=== PATIENT | female | born 1930 | race Caucasian/White ===

== ENCOUNTER → 2016-07-01 | Outpatient (CLI) | payer MEDICARE ==
[~2016-07-01] MED LIST: ACTONEL35 MG PO; ALBUTEROL0.09 MG/A2 IH; ANTIVERT12.5 MG PO; IMDUR30 MG PO; LASIX40 MG PO; PRAVACHOL40 MG PO; PREDNICOT10 MG PO; XANAX0.25 MG PO; ZITHROMAX Z PA250 MG PO
[2016-07-01 14:54] LABS: BASO # 0.1 10*3/uL (0.0-0.1); BASO % 0.8 % (0.0-1.0); EOS # 0.1 10*3/uL (0.0-0.4); EOS % 1.6 % (1.0-4.0); HEMOGLOBIN 13.2 g/dl (12.0-16.0); LYMPH # 1.5 10*3/uL (1.3-4.4); LYMPH % 23.6 % (27.0-41.0); MEAN CELL VOLUME 94.6 fl (81.0-99.0); MEAN CORPUSCULAR HGB 31.2 pg (27.0-31.0); MEAN PLATELET VOLUME 9.8 fl (9.6-12.3); MONO # 0.6 10*3/uL (0.1-1.0); NEUT % 63.7 % (47.0-73.0); PLATELET COUNT AUTOMATED 210 10*3/uL (130-400); RED BLOOD COUNT 4.23 10*6/uL (4.10-5.10); RED CELL DISTRI WIDTH 14.4 % (0-14.5); WHITE BLOOD COUNT 6.3 10*3/uL (4.8-10.8)
[2016-07-01 15:12] LABS: ALBUMIN 3.8 gm/dl (3.1-4.5); ALKALINE PHOSPHATASE 66 U/L (45-117); BILIRUBIN, TOTAL 0.4 mg/dl (0.2-1.0); BUN 18 mg/dl (7-24); CARBON DIOXIDE 29 mmol/L (21-32); CHLORIDE 105 mmol/L (98-107); EST GLOM FILT AFRICAN AMERICAN > 60 ml/min; GLUCOSE 87 mg/dL (65-99); POTASSIUM 4.2 mmol/L (3.5-5.1); SGOT/AST 26 IU/L (3-35); SGPT/ALT 27 U/L (12-78); SODIUM 143 mmol/L (136-145); TOTAL PROTEIN 7.7 gm/dL (6.4-8.2)
== END | disposition home or self-care (01) ==
LOC: LAB 14:25
PROVIDERS: Internal Medicine
DX: G30.0 Alzheimer's disease with early onset (principal)

== ENCOUNTER 2016-09-02 13:21 | Inpatient (IN) | payer MEDICARE ==
[2016-09-02] VITALS (7 sets, daily range): BP systolic 104–175; BP diastolic 38–65
[~2016-09-02] VITALS: Ht 152.4 cm; Wt 67.3 kg
[2016-09-02] MEDS ORDERED: AMLODIPINE BESY1 TAB PO (13:30)
[2016-09-02] MEDS ORDERED: LISINOPRIL AND1 TAB PO (13:31)
[2016-09-02] MEDS ORDERED: ARICEPT5 M1 PO (13:31)
[2016-09-02] MEDS ORDERED: ALENDRONATE SOD70 M1 PO (13:31)
[2016-09-02 14:13] LABS: BASO # 0.1 10*3/uL (0.0-0.1); EOS # 0.2 10*3/uL (0.0-0.4); EOS % 2.8 % (1.0-4.0); HEMOGLOBIN 12.8 g/dl (12.0-16.0); IG # 0.1 10*3/uL (0.0-0.1); LYMPH # 1.7 10*3/uL (1.3-4.4); LYMPH % 25.3 % (27.0-41.0); MEAN CELL VOLUME 93.6 fl (81.0-99.0); MEAN CORPUSCULAR HGB 31.5 pg (27.0-31.0); MEAN CORPUSCULAR HGB CONC 33.7 g/dl (33.0-37.0); MEAN PLATELET VOLUME 9.9 fl (9.6-12.3); MONO # 0.6 10*3/uL (0.1-1.0); MONO % 8.9 % (3.0-9.0); NEUT # 4.1 10*3/uL (2.3-7.9); NEUT % 61.3 % (47.0-73.0); PLATELET COUNT AUTOMATED 207 10*3/uL (130-400); RED BLOOD COUNT 4.06 10*6/uL (4.10-5.10); RED CELL DISTRI WIDTH 13.7 % (0-14.5); WHITE BLOOD COUNT 6.8 10*3/uL (4.8-10.8)
[2016-09-02 14:20] LABS: PROTHROMBIN TIME 10.6 SECONDS (9.0-12.4)
[2016-09-02 14:28] LABS: ALBUMIN 3.6 gm/dl (3.1-4.5); ALKALINE PHOSPHATASE 56 U/L (45-117); BILIRUBIN, TOTAL 0.4 mg/dl (0.2-1.0); BUN 21 mg/dl (7-24); CARBON DIOXIDE 27 mmol/L (21-32); CHLORIDE 105 mmol/L (98-107); CPK 81 U/L (26-192); EST GLOM FILT AFRICAN AMERICAN > 60 ml/min; GLUCOSE 126 mg/dL (65-99); LDH 218 U/L (84-246); MAGNESIUM 2.3 mg/dL (1.5-2.1); SGOT/AST 21 IU/L (3-35); SGPT/ALT 20 U/L (12-78); SODIUM 140 mmol/L (136-145); TOTAL PROTEIN 7.2 gm/dL (6.4-8.2)
[2016-09-02 14:31] LABS: TROPONIN I < 0.015 ng/ml (<0.045)
[2016-09-02 18:09] LABS: CKMB 2.3 ng/ml (0.5-3.6); CPK 74 U/L (26-192)
[2016-09-02 18:10] LABS: TROPONIN I < 0.015 ng/ml (<0.045)
[2016-09-03] VITALS: BP 134/54
[2016-09-03 00:28] LABS: CKMB 2.1 ng/ml (0.5-3.6); CPK 65 U/L (26-192)
[2016-09-03 00:31] LABS: TROPONIN I < 0.015 ng/ml (<0.045)
[2016-09-03 06:21] LABS: BASO # 0.1 10*3/uL (0.0-0.1); BASO % 0.9 % (0.0-1.0); EOS # 0.4 10*3/uL (0.0-0.4); EOS % 5.5 % (1.0-4.0); HEMATOCRIT 39.3 % (37.0-47.0); HEMOGLOBIN 13.2 g/dl (12.0-16.0); LYMPH # 1.7 10*3/uL (1.3-4.4); LYMPH % 26.1 % (27.0-41.0); MEAN CORPUSCULAR HGB 31.6 pg (27.0-31.0); MEAN CORPUSCULAR HGB CONC 33.6 g/dl (33.0-37.0); MEAN PLATELET VOLUME 9.9 fl (9.6-12.3); MONO # 0.6 10*3/uL (0.1-1.0); MONO % 8.6 % (3.0-9.0); NEUT # 3.7 10*3/uL (2.3-7.9); NEUT % 58.6 % (47.0-73.0); PLATELET COUNT AUTOMATED 200 10*3/uL (130-400); RED BLOOD COUNT 4.18 10*6/uL (4.10-5.10); RED CELL DISTRI WIDTH 13.8 % (0-14.5); WHITE BLOOD COUNT 6.4 10*3/uL (4.8-10.8)
[2016-09-03 06:32] LABS: CKMB 1.6 ng/ml (0.5-3.6); CPK 59 U/L (26-192)
[2016-09-03 06:34] LABS: HEMOGLOBIN A1c 5.9 % (4.8-5.6)
[2016-09-03 06:36] LABS: TROPONIN I < 0.015 ng/ml (<0.045)
[2016-09-03 06:57] LABS: ALBUMIN 3.5 gm/dl (3.1-4.5); BUN 16 mg/dl (7-24); CARBON DIOXIDE 26 mmol/L (21-32); CHLORIDE 110 mmol/L (98-107); CHOLESTEROL 164 mg/dL (<200); GLUCOSE 86 mg/dL (65-99); MAGNESIUM 2.4 mg/dL (1.5-2.1); PHOSPHOROUS 3.1 mg/dL (2.5-4.9); POTASSIUM 4.1 mmol/L (3.5-5.1); SGOT/AST 25 IU/L (3-35); SODIUM 144 mmol/L (136-145); TRIGLYCERIDES 78 mg/dl (<150); VLDL CHOLESTEROL 16 mg/dL (6-40)
[2016-09-03 07:01] LABS: PROTHROMBIN TIME 10.5 SECONDS (9.0-12.4)
[2016-09-03 07:02] LABS: VITAMIN D, 25-HYDROXY 41.7 ng/mL (30-100)
[2016-09-03 07:03] LABS: FOLIC ACID > 24.00 ng/mL (>5.38)
[2016-09-03 07:04] LABS: ALKALINE PHOSPHATASE 53 U/L (45-117); BILIRUBIN, TOTAL 0.5 mg/dl (0.2-1.0); EST GLOM FILT AFRICAN AMERICAN > 60 ml/min; FREE T4 0.96 ng/dl (0.76-1.46); HDL CHOLESTEROL 45 mg/dl (40-60); LDL CHOLESTEROL 103 mg/dL (9-159); SGPT/ALT 17 U/L (12-78)
[2016-09-03 08:00] VITALS: BP 146/51
[2016-09-03 12:00] VITALS: BP 121/75
[2016-09-03] MEDS ORDERED: AMLODIPINE BESY1 TAB PO (14:42)
[2016-09-03 16:00] VITALS: BP 137/79
[2016-09-03 20:00] VITALS: BP 149/75
[2016-09-04] VITALS: BP 141/65
[2016-09-04 08:00] VITALS: BP 150/57
[2016-09-04] MEDS ORDERED: ADALAT10 MG PO (11:24)
[2016-09-04 12:00] VITALS: BP 157/53
== END 2016-09-04 13:59 | disposition home or self-care (01) | DRG 310 ==
LOC: ED 13:21 → 4E 16:17
PROVIDERS: Internal Medicine; Physician Assistant
DX: R00.1 Bradycardia, unspecified (principal); F03.90 Unspecified dementia, unspecified severity, without behavioral disturbance, psychotic disturbance, mood disturbance, and anxiety; I10 Essential (primary) hypertension; E89.0 Postprocedural hypothyroidism; R91.1 Solitary pulmonary nodule; I73.00 Raynaud's syndrome without gangrene; M81.0 Age-related osteoporosis without current pathological fracture; E02 Subclinical iodine-deficiency hypothyroidism; Z90.710 Acquired absence of both cervix and uterus; Z87.891 Personal history of nicotine dependence; T44.1X5A Adverse effect of other parasympathomimetics [cholinergics], initial encounter

== ENCOUNTER → 2016-09-21 | Outpatient (CLI) | payer MEDICARE ==
[~2016-09-21] MED LIST changes: +ADALAT10 MG PO; +ALENDRONATE SOD70 M1 PO; +AMLODIPINE BESY1 TAB PO; +ARICEPT5 M1 PO; +LISINOPRIL AND1 TAB PO
== END ==
LOC: CT 09-15 15:00
DX: J44.9 Chronic obstructive pulmonary disease, unspecified (principal); R91.1 Solitary pulmonary nodule; I25.10 Atherosclerotic heart disease of native coronary artery without angina pectoris; Z85.118 Personal history of other malignant neoplasm of bronchus and lung

== ENCOUNTER → 2016-09-22 | Outpatient (CLI) | payer MEDICARE | END | disposition home or self-care (01) | LOC: MRI 01:54 | DX: F03.90 Unspecified dementia, unspecified severity, without behavioral disturbance, psychotic disturbance, mood disturbance, and anxiety (principal); G25.2 Other specified forms of tremor; J32.0 Chronic maxillary sinusitis ==

== ENCOUNTER 2016-11-18 16:04 | Inpatient (IN) | payer MEDICARE ==
[~2016-11-18] VITALS: Ht 157.5 cm; Wt 635.5 kg
[2016-11-18 16:15] VITALS: BP 118/60
[2016-11-18 16:16] VITALS: BP 116/47
[2016-11-18 16:20] LABS: BASO % 0.5 % (0.0-1.0); EOS # 0.1 10*3/uL (0.0-0.4); EOS % 0.7 % (1.0-4.0); HEMOGLOBIN 13.3 g/dl (12.0-16.0); LYMPH % 24.5 % (27.0-41.0); MEAN CELL VOLUME 88.5 fl (81.0-99.0); MEAN CORPUSCULAR HGB 31.8 pg (27.0-31.0); MEAN CORPUSCULAR HGB CONC 35.9 g/dl (33.0-37.0); MEAN PLATELET VOLUME 8.8 fl (9.6-12.3); MONO # 0.8 10*3/uL (0.1-1.0); MONO % 10.1 % (3.0-9.0); NEUT # 5.3 10*3/uL (2.3-7.9); NEUT % 63.8 % (47.0-73.0); PLATELET COUNT AUTOMATED 294 10*3/uL (130-400); RED BLOOD COUNT 4.18 10*6/uL (4.10-5.10); RED CELL DISTRI WIDTH 13.3 % (0-14.5); WHITE BLOOD COUNT 8.3 10*3/uL (4.8-10.8)
[2016-11-18 16:29] LABS: PROTHROMBIN TIME 10.4 SECONDS (9.0-12.4)
[2016-11-18 16:36] LABS: ALBUMIN 4.2 gm/dl (3.1-4.5); BILIRUBIN, TOTAL 0.4 mg/dl (0.2-1.0); BUN 22 mg/dl (7-24); CARBON DIOXIDE 24 mmol/L (21-32); CHLORIDE 90 mmol/L (98-107); EST GLOM FILT AFRICAN AMERICAN 51 ml/min; GLUCOSE 145 mg/dL (65-99); MAGNESIUM 2.1 mg/dL (1.5-2.1); POTASSIUM 3.4 mmol/L (3.5-5.1); SGOT/AST 30 IU/L (3-35); SGPT/ALT 24 U/L (12-78); SODIUM 127 mmol/L (136-145); TOTAL PROTEIN 7.9 gm/dL (6.4-8.2)
[2016-11-18 16:38] LABS: ALKALINE PHOSPHATASE 63 U/L (45-117)
[2016-11-18 16:41] LABS: TROPONIN I < 0.015 ng/ml (<0.045)
[2016-11-18 18:10] VITALS: BP 173/58
[2016-11-18] MEDS ORDERED: ARICEPT10 M1 PO (18:39)
[2016-11-18] MEDS ORDERED: LISINOPRIL-HYDR1 TA3 PO (18:39)
[2016-11-18] MEDS ORDERED: LASIX20 MG PO (18:39)
[2016-11-18] MEDS ORDERED: AMLODIPINE BESY1 TAB PO (18:40)
[2016-11-18 20:00] VITALS: BP 121/55
[2016-11-19] VITALS: BP 110/74
[2016-11-19 05:14] LABS: BASO # 0.1 10*3/uL (0.0-0.1); BASO % 0.9 % (0.0-1.0); EOS # 0.1 10*3/uL (0.0-0.4); EOS % 2.3 % (1.0-4.0); HEMATOCRIT 36.2 % (37.0-47.0); HEMOGLOBIN 12.5 g/dl (12.0-16.0); LYMPH # 1.3 10*3/uL (1.3-4.4); LYMPH % 22.2 % (27.0-41.0); MEAN CORPUSCULAR HGB 31.1 pg (27.0-31.0); MEAN CORPUSCULAR HGB CONC 34.5 g/dl (33.0-37.0); MONO # 0.8 10*3/uL (0.1-1.0); MONO % 13.6 % (3.0-9.0); NEUT # 3.5 10*3/uL (2.3-7.9); NEUT % 60.8 % (47.0-73.0); PLATELET COUNT AUTOMATED 268 10*3/uL (130-400); RED BLOOD COUNT 4.02 10*6/uL (4.10-5.10); RED CELL DISTRI WIDTH 13.4 % (0-14.5); WHITE BLOOD COUNT 5.7 10*3/uL (4.8-10.8)
[2016-11-19 05:35] LABS: ALBUMIN 3.5 gm/dl (3.1-4.5); BUN 18 mg/dl (7-24); CARBON DIOXIDE 29 mmol/L (21-32); CHLORIDE 95 mmol/L (98-107); GLUCOSE 88 mg/dL (65-99); MAGNESIUM 2.3 mg/dL (1.5-2.1); POTASSIUM 3.3 mmol/L (3.5-5.1); SODIUM 136 mmol/L (136-145)
[2016-11-19 05:46] LABS: ALKALINE PHOSPHATASE 55 U/L (45-117); BILIRUBIN, TOTAL 0.6 mg/dl (0.2-1.0); EST GLOM FILT AFRICAN AMERICAN > 60 ml/min; FREE T4 1.07 ng/dl (0.76-1.46); PHOSPHOROUS 3.3 mg/dL (2.5-4.9); SGOT/AST 20 IU/L (3-35); SGPT/ALT 20 U/L (12-78)
[2016-11-19 07:01] LABS: VITAMIN D, 25-HYDROXY 43.3 ng/mL (30-100)
[2016-11-19 07:02] LABS: FOLIC ACID 21.09 ng/mL (>5.38)
[2016-11-19 07:07] LABS: BILIRUBIN NEGATIVE (NEGATIVE); BLOOD NEGATIVE (NEGATIVE); CLARITY CLEAR (CLEAR); COLOR YELLOW (YELLOW); GLUCOSE NEGATIVE (NEGATIVE); KETONE NEGATIVE (NEGATIVE); LEUKO ESTERASE NEGATIVE (NEGATIVE); NITRITE NEGATIVE (NEGATIVE); PROTEIN NEGATIVE (NEGATIVE); SPECIFIC GRAVITY <= 1.005 (1.005-1.030); UROBILINOGEN 0.2 E.U./dl (0.2-1.0)
[2016-11-19 07:20] LABS: EPITHELIAL CELLS 0-1; RBC 0-2 rbc/hpf (0-2); URINE REFLEX COMMENT NO (NO)
[2016-11-19 08:00] VITALS: BP 122/42
== END 2016-11-19 11:21 | disposition short-term general hospital (02) | DRG 682 ==
LOC: ED 16:04 → 4E 17:23 → EDHOLD 17:23 → 4E 18:00
PROVIDERS: Emergency Medicine; Student in an Organized Health Care Education/Training Program
DX: N17.0 Acute kidney failure with tubular necrosis (principal); G93.41 Metabolic encephalopathy; E87.8 Other disorders of electrolyte and fluid balance, not elsewhere classified; E87.1 Hypo-osmolality and hyponatremia; M86.9 Osteomyelitis, unspecified; I27.2 Other secondary pulmonary hypertension; F03.90 Unspecified dementia, unspecified severity, without behavioral disturbance, psychotic disturbance, mood disturbance, and anxiety; E78.6 Lipoprotein deficiency; Z60.2 Problems related to living alone; I10 Essential (primary) hypertension; R91.1 Solitary pulmonary nodule; E89.0 Postprocedural hypothyroidism; R00.1 Bradycardia, unspecified; D72.820 Lymphocytosis (symptomatic); R73.9 Hyperglycemia, unspecified; E78.5 Hyperlipidemia, unspecified; I73.00 Raynaud's syndrome without gangrene; Z87.891 Personal history of nicotine dependence; Z82.3 Family history of stroke; Z90.710 Acquired absence of both cervix and uterus; I25.2 Old myocardial infarction; Z85.3 Personal history of malignant neoplasm of breast; Z95.0 Presence of cardiac pacemaker

== ENCOUNTER 2016-11-21 21:39 | Emergency (ER) | payer MEDICARE ==
[~2016-11-21] VITALS: Ht 160 cm; Wt 60.3 kg
[~2016-11-21 21:39] MED LIST changes: +ARICEPT10 M1 PO; +LASIX20 MG PO; +LISINOPRIL-HYDR1 TA3 PO
[2016-11-21] MEDS ORDERED: KEFLEX500 M1 PO (21:48)
[2016-11-21] MEDS ORDERED: NORCO 5-325 TA1 EACH PO (21:49)
[2016-11-21 22:46] LABS: BASO # 0.1 10*3/uL (0.0-0.1); BASO % 0.6 % (0.0-1.0); EOS # 0.1 10*3/uL (0.0-0.4); EOS % 1.1 % (1.0-4.0); HEMATOCRIT 35.1 % (37.0-47.0); HEMOGLOBIN 12.1 g/dl (12.0-16.0); LYMPH # 1.5 10*3/uL (1.3-4.4); LYMPH % 18.7 % (27.0-41.0); MEAN CELL VOLUME 91.4 fl (81.0-99.0); MEAN CORPUSCULAR HGB 31.5 pg (27.0-31.0); MEAN CORPUSCULAR HGB CONC 34.5 g/dl (33.0-37.0); MONO # 0.8 10*3/uL (0.1-1.0); MONO % 10.4 % (3.0-9.0); NEUT # 5.5 10*3/uL (2.3-7.9); NEUT % 68.9 % (47.0-73.0); PLATELET COUNT AUTOMATED 245 10*3/uL (130-400); RED BLOOD COUNT 3.84 10*6/uL (4.10-5.10); RED CELL DISTRI WIDTH 13.8 % (0-14.5)
[2016-11-21 22:55] LABS: PROTHROMBIN TIME 10.3 SECONDS (9.0-12.4)
== END 2016-11-22 00:42 | disposition home or self-care (01) ==
LOC: ED 21:39
PROVIDERS: Emergency Medicine Emergency Medical Services
DX: S20.212A Contusion of left front wall of thorax, initial encounter (principal); E78.5 Hyperlipidemia, unspecified; I10 Essential (primary) hypertension; Z90.89 Acquired absence of other organs; Z90.710 Acquired absence of both cervix and uterus; Z87.891 Personal history of nicotine dependence; Z98.890 Other specified postprocedural states; Z95.0 Presence of cardiac pacemaker; Z79.899 Other long term (current) drug therapy; X58.XXXA Exposure to other specified factors, initial encounter; Y93.89 Activity, other specified; Y92.89 Other specified places as the place of occurrence of the external cause; Y99.9 Unspecified external cause status

== ENCOUNTER → 2018-01-21 | Outpatient (CLI) | payer MEDICARE ==
[~2018-01-21] MED LIST changes: +KEFLEX500 M1 PO; +NORCO 5-325 TA1 EACH PO
== END | disposition home or self-care (01) ==
LOC: RAD 12:44
DX: Z13.820 Encounter for screening for osteoporosis (principal); M81.8 Other osteoporosis without current pathological fracture; Z78.0 Asymptomatic menopausal state; Z90.710 Acquired absence of both cervix and uterus

== ENCOUNTER 2018-07-30 21:20 | Emergency (ER) | payer MEDICARE ==
[~2018-07-30] VITALS: Ht 157.4 cm; Wt 59.0 kg
--- NOTE | ~2018-07-30 | EKG ---
[place], [place] ELECTROCARDIOGRAM REPORT NAME: CAROLYNE FOSTER UNIT #: [id number] [facility] BIRTH[facility]: [birth year] [facility] Test Date: 2018-07-30 Test Time: 21:23:17 Pat Name: CAROLYNE FOSTER Department: Room: Gender: F Contact Worker Lithography: Linden Calvo : 1930 Requested By: EMETERIO ALAS Order Number: [id number] Reading MD: Nany Zambrano MD Measurements Intervals [place] Rate: 60 P: TX: 54 QRS: -41 QRSD: 113 T: 81 QT: 439 QTc: 439 Interpretive Statements Atrial-paced rhythm with V sensing Borderline IVCD with LAD Electronically Signed On 08-01-2018 8:03:55 PDT by Nany Zambrano MD CM:EKGRPT:ELECTROCARDIOGRAM REPORT [id number] EMETERIO [place] DRAFT REPORT EMETERIO ALAS DO
[2018-07-30 21:52] LABS: BASO # 0.1 10*3/uL (0.0-0.1); BASO % 0.8 % (0.0-1.0); EOS # 0.4 10*3/uL (0.0-0.4); HEMATOCRIT 32.2 % (37.0-47.0); LYMPH # 1.5 10*3/uL (1.3-4.4); LYMPH % 19.4 % (27.0-41.0); MEAN CELL VOLUME 92.8 fl (81.0-99.0); MEAN CORPUSCULAR HGB 31.7 pg (27.0-31.0); MEAN CORPUSCULAR HGB CONC 34.2 g/dl (33.0-37.0); MEAN PLATELET VOLUME 8.7 fl (9.6-12.3); MONO # 0.9 10*3/uL (0.1-1.0); MONO % 12.1 % (3.0-9.0); NEUT # 4.8 10*3/uL (2.3-7.9); NEUT % 62.4 % (47.0-73.0); PLATELET COUNT AUTOMATED 228 10*3/uL (130-400); RED BLOOD COUNT 3.47 10*6/uL (4.10-5.10); RED CELL DISTRI WIDTH 13.2 % (0-14.5); WHITE BLOOD COUNT 7.6 10*3/uL (4.8-10.8)
[2018-07-30 22:03] LABS: ACT PARTIAL THROMBO TIME 24.3 SECONDS (20.8-31.5)
[2018-07-30 22:09] LABS: ALBUMIN 3.5 gm/dl (3.1-4.5); ALKALINE PHOSPHATASE 51 U/L (45-117); BUN 26 mg/dl (7-24); CHLORIDE 97 mmol/L (98-107); CREATININE 1.17 mg/dL (0.55-1.02); SGOT/AST 22 IU/L (3-35); SGPT/ALT 18 U/L (12-78); SODIUM 131 mmol/L (136-145); TOTAL PROTEIN 7.3 gm/dL (6.4-8.2); TROPONIN I < 0.015 ng/ml (<0.045)
[2018-07-30] MEDS ORDERED: CEPHALEXIN500 M1 PO (23:45)
== END 2018-07-30 23:57 | disposition home or self-care (01) ==
LOC: ED 21:20
PROVIDERS: Emergency Medicine
DX: R06.02 Shortness of breath (principal); L03.115 Cellulitis of right lower limb; E78.5 Hyperlipidemia, unspecified; I10 Essential (primary) hypertension; I25.2 Old myocardial infarction; Z95.0 Presence of cardiac pacemaker; R25.1 Tremor, unspecified; Z79.899 Other long term (current) drug therapy; Z79.2 Long term (current) use of antibiotics; Z90.710 Acquired absence of both cervix and uterus; Z87.891 Personal history of nicotine dependence

== ENCOUNTER 2018-10-15 08:28 | Emergency (ER) | payer MEDICARE ==
[~2018-10-15] VITALS: Wt 59.9 kg
--- NOTE | ~2018-10-15 | EKG ---
[place], [place] ELECTROCARDIOGRAM REPORT NAME: CAROLYNE FOSTER UNIT #: [id number] ROOM: DOCTOR: EPIPHANY DRAFT REPORT BIRTHDATE: [address] [facility] Test Date: 2018-10-15 Test Time: 08:55:19 Pat Name: CAROLYNE FOSTER Department: Room: Gender: F Jewel Setter: : 1930 Requested By: EUN SINGER Order Number: [id number] Reading MD: Marc Grossman MD Measurements Intervals [place] Rate: 71 P: MO: 169 QRS: -34 QRSD: 110 T: 80 QT: 426 QTc: 463 Interpretive Statements Atrial-paced rhythm Left axis deviation Abnormal lateral Q waves Anteroseptal infarct, old Compared to ECG 07/30/2018 21:23:17 Left-axis deviation now present Q waves now present Myocardial infarct finding now present Electronically Signed On 10-17-2018 9:50:23 PDT by Marc Grossman MD CM:EKGRPT:ELECTROCARDIOGRAM REPORT [id number] EUN SINGER MD EPIPHSHANIA DRAFT REPORT EUN SINGER MD
[~2018-10-15 08:28] MED LIST changes: +CEPHALEXIN500 M1 PO
[2018-10-15 08:41] LABS: BASO # 0.1 10*3/uL (0.0-0.1); BASO % 0.9 % (0.0-1.0); EOS # 0.2 10*3/uL (0.0-0.4); EOS % 3.1 % (1.0-4.0); HEMATOCRIT 32.7 % (37.0-47.0); HEMOGLOBIN 11.3 g/dl (12.0-16.0); LYMPH % 17.4 % (27.0-41.0); MEAN CELL VOLUME 92.9 fl (81.0-99.0); MEAN CORPUSCULAR HGB 32.1 pg (27.0-31.0); MEAN CORPUSCULAR HGB CONC 34.6 g/dl (33.0-37.0); MEAN PLATELET VOLUME 8.7 fl (9.6-12.3); MONO # 0.7 10*3/uL (0.1-1.0); MONO % 12.6 % (3.0-9.0); NEUT # 3.7 10*3/uL (2.3-7.9); NEUT % 65.6 % (47.0-73.0); PLATELET COUNT AUTOMATED 231 10*3/uL (130-400); RED BLOOD COUNT 3.52 10*6/uL (4.10-5.10); RED CELL DISTRI WIDTH 13.5 % (0-14.5); WHITE BLOOD COUNT 5.6 10*3/uL (4.8-10.8)
[2018-10-15 08:52] LABS: ACT PARTIAL THROMBO TIME 24.6 SECONDS (20.0-32.1); INTERNATIONAL NORM RATIO 0.9 (2.0-3.5)
[2018-10-15 08:58] LABS: ALBUMIN 3.8 gm/dl (3.1-4.5); ALKALINE PHOSPHATASE 40 U/L (45-117); BUN 30 mg/dl (7-24); CHLORIDE 101 mmol/L (98-107); CREATININE 1.06 mg/dL (0.55-1.02); SGOT/AST 25 IU/L (3-35); SGPT/ALT 17 U/L (12-78); SODIUM 134 mmol/L (136-145); TOTAL PROTEIN 7.3 gm/dL (6.4-8.2)
[2018-10-15 08:59] LABS: ETHYL ALCOHOL < 3.0 mg/dl (<3); TROPONIN I < 0.015 ng/ml (<0.045)
[2018-10-15 09:22] LABS: BILIRUBIN NEGATIVE (NEGATIVE); BLOOD NEGATIVE (NEGATIVE); CLARITY CLEAR (CLEAR); COLOR YELLOW (YELLOW); GLUCOSE NEGATIVE (NEGATIVE); KETONE NEGATIVE (NEGATIVE); LEUKO ESTERASE TRACE (NEGATIVE); NITRITE NEGATIVE (NEGATIVE); UROBILINOGEN 0.2 E.U./dl (0.2-1.0)
[2018-10-15 09:31] LABS: BACTERIA 1+
[2018-10-15 09:32] LABS: URINE AMPHETAMINES < 1000 (1000ng/ml); URINE BARBITURATES < 200 (200ng/ml); URINE BENZODIAZEPINES < 200 (200ng/ml); URINE CANNABINOIDS (THC) < 50 (50ng/ml); URINE COCAINE < 300 (300ng/ml); URINE METHADONE < 300 (300ng/ml); URINE OPIATES < 300 (300ng/ml)
[2018-10-15 09:40] LABS: URINE PHENCYCLIDINE < 25 (25ng/ml)
== END 2018-10-15 11:19 | disposition home or self-care (01) ==
LOC: ED 08:28
PROVIDERS: Emergency Medicine
DX: F03.91 Unspecified dementia, unspecified severity, with behavioral disturbance (principal); E78.5 Hyperlipidemia, unspecified; I10 Essential (primary) hypertension; I25.2 Old myocardial infarction; M81.0 Age-related osteoporosis without current pathological fracture; E89.0 Postprocedural hypothyroidism; Z79.2 Long term (current) use of antibiotics; Z79.899 Other long term (current) drug therapy; Z90.710 Acquired absence of both cervix and uterus; Z87.891 Personal history of nicotine dependence

== ENCOUNTER → 2019-01-04 | Outpatient (CLI) | payer MEDICARE ==
[~2019-01-04] MED LIST changes: +MACROBID100 M1 PO
== END | disposition home or self-care (01) ==
LOC: CT 12:37
DX: R91.1 Solitary pulmonary nodule (principal); I25.10 Atherosclerotic heart disease of native coronary artery without angina pectoris; J43.9 Emphysema, unspecified; K44.9 Diaphragmatic hernia without obstruction or gangrene

== ENCOUNTER 2019-01-11 17:37 | Inpatient (IN) | payer MEDICARE ==
[~2019-01-11] VITALS: Ht 165.1 cm; Wt 50.1 kg
[2019-01-11 17:38] VITALS: BP 132/52
[2019-01-11 18:03] LABS: BASO % 0.1 % (0.0-1.0); EOS # 0.8 10*3/uL (0.0-0.4); EOS % 10.5 % (1.0-4.0); HEMATOCRIT 27.8 % (37.0-47.0); HEMOGLOBIN 9.8 g/dl (12.0-16.0); LYMPH # 0.8 10*3/uL (1.3-4.4); MEAN CELL VOLUME 92.7 fl (81.0-99.0); MEAN CORPUSCULAR HGB 32.7 pg (27.0-31.0); MEAN CORPUSCULAR HGB CONC 35.3 g/dl (33.0-37.0); MEAN PLATELET VOLUME 9.1 fl (9.6-12.3); MONO # 0.7 10*3/uL (0.1-1.0); MONO % 9.3 % (3.0-9.0); NEUT # 5.5 10*3/uL (2.3-7.9); NEUT % 69.6 % (47.0-73.0); PLATELET COUNT AUTOMATED 246 10*3/uL (130-400); RED CELL DISTRI WIDTH 13.5 % (0-14.5); WHITE BLOOD COUNT 7.9 10*3/uL (4.8-10.8)
[2019-01-11 18:15] LABS: ACT PARTIAL THROMBO TIME 27.6 SECONDS (20.0-32.1); INTERNATIONAL NORM RATIO 0.9 (2.0-3.5)
[2019-01-11 18:21] LABS: ALKALINE PHOSPHATASE 37 U/L (45-117); BUN 43 mg/dl (7-24); CHLORIDE 91 mmol/L (98-107); CREATININE 1.17 mg/dL (0.55-1.02); POTASSIUM 3.4 mmol/L (3.5-5.1); SGOT/AST 40 IU/L (3-35); SGPT/ALT 23 U/L (12-78); SODIUM 126 mmol/L (136-145); TOTAL PROTEIN 6.5 gm/dL (6.4-8.2)
[2019-01-11 18:26] LABS: TROPONIN I < 0.015 ng/ml (<0.045)
[2019-01-11 19:25] LABS: BILIRUBIN NEGATIVE (NEGATIVE); BLOOD 1+ (NEGATIVE); CLARITY SL CLOUDY (CLEAR); COLOR YELLOW (YELLOW); GLUCOSE NEGATIVE (NEGATIVE); KETONE NEGATIVE (NEGATIVE); LEUKO ESTERASE 2+ (NEGATIVE); NITRITE NEGATIVE (NEGATIVE); SPECIFIC GRAVITY <= 1.005 (1.005-1.030); UROBILINOGEN 0.2 E.U./dl (0.2-1.0)
[2019-01-11 19:40] LABS: BACTERIA 2+
[2019-01-11 20:30] VITALS: BP 140/58
--- NOTE | 2019-01-11 20:30 | NUR ---
A 88, admitted to , under the services of KIERAN Gordillo DO with a diagnosis of SCALP ABRASION, SOBGAIT INSTABILITY. Chief complaint is SOB, FREQUENT FALLS. Patient arrived via stretcher from ER. Monitor applied. Initial assessment completed. Vital signs taken and recorded. KIERAN GORDILLO DO notified of admission to the unit. Orders received. See assessment for past medical history, medications and allergies. Patient and/or family oriented to unit. [facility] visitation policy reviewed. Clothing/patient valuable form completed. SAUNDRA DAMON
[2019-01-11] MEDS ORDERED: LISINOPRIL10 M1 PO (21:01)
[2019-01-11] MEDS ORDERED: ASPIRIN ADULT L81 M1 PO (21:01)
[2019-01-11] MEDS ORDERED: HYDROCHLOROTH12.5 M2 PO (21:02)
[2019-01-11] MEDS ORDERED: OCUVITE ADULT1 EAC1 PO (21:03)
[2019-01-11] MEDS ORDERED: VITAMIN D22000 UNIT PO (21:03)
--- NOTE | 2019-01-11 22:14 | NUR ---
DR. BPATISTE NOTIFIED OF CONSULT PER ORDER.
[2019-01-12] VITALS: BP 121/56
[2019-01-12 06:51] LABS: BASO % 0.2 % (0.0-1.0); EOS % 16.1 % (1.0-4.0); HEMOGLOBIN 10.1 g/dl (12.0-16.0); LYMPH # 0.7 10*3/uL (1.3-4.4); LYMPH % 11.1 % (27.0-41.0); MEAN CELL VOLUME 91.8 fl (81.0-99.0); MEAN CORPUSCULAR HGB CONC 34.8 g/dl (33.0-37.0); MEAN PLATELET VOLUME 9.6 fl (9.6-12.3); MONO # 0.5 10*3/uL (0.1-1.0); MONO % 7.9 % (3.0-9.0); NEUT # 3.8 10*3/uL (2.3-7.9); NEUT % 64.2 % (47.0-73.0); PLATELET COUNT AUTOMATED 265 10*3/uL (130-400); RED BLOOD COUNT 3.16 10*6/uL (4.10-5.10); RED CELL DISTRI WIDTH 13.4 % (0-14.5)
[2019-01-12 08:00] VITALS: BP 130/64
[2019-01-12 08:31] LABS: BUN 32 mg/dl (7-24); CHLORIDE 99 mmol/L (98-107); CREATININE 0.88 mg/dL (0.55-1.02); POTASSIUM 3.1 mmol/L (3.5-5.1); SODIUM 133 mmol/L (136-145)
--- NOTE | 2019-01-12 10:10 | NUR ---
Occupational Therapy evaluation completed on 4 with full eval to follow. Precautions include fall risk, impaired cognition, fall risk; bed/ chair alarm, moderate complexity level 80328 via chart review,testing and evaluation. Recommend OT per POC and SNF to enable max ability to function. Thank you. Rocío Mota OTR/l
--- NOTE | 2019-01-12 10:22 | NUR ---
PHYSICAL THERAPY Physical therapy evaluation completed, 4E. PT evaluation determined as a moderate complexity, [address]. PT will work on strength, balance, safety, transfers. PT recommending SNF at [facility]. Kimberly Stephenson, PT, DPT
--- NOTE | 2019-01-12 11:07 | NUR ---
Patient unable to have a conversation with me at this time, contacted daughter Augusta who stated she is going to be here at the hospital after work and discuss which snf facility with the rest of her family. She will let us know by the end of today.
[2019-01-12 12:00] VITALS: BP 137/65
--- NOTE | 2019-01-12 14:31 | NUR ---
Balancer in to talk to patient. Patient states lives at HOME with ALONE WITH DAUGHTER LOOKING IN ON HER. There are FEW steps in the home. Physician: Tyler RODRIGUEZ Pharmacy: [facility] Home health services: NONE Patient's level of ADLs: MINIMAL ASSIST Patient has working utilities: YES DME: NONE Follow-up physician's appointment after d/c: WILL BE MADE BY HOSPITALIST NURSE DIRECTOR ON DISCHARGE Does patient want to access PORTAL?: NO Discharge plan PT LIVES AT HOME ALONE PER DAUGHTER. DAUGHTER STATES SHE CHECKS ON PT FREQUENTLY. DRY YARD WORKER TALKED WITH DAUGHTER AND SHE IS GOING TO CALL US BACK WHEN SHE DECIDES WHAT FACILITY SHE WOULD LIKE PT TO GO TO. WILL CONTINUE TO FOLLOW.. TITA EASLEY
[2019-01-12 16:00] VITALS: BP 86/50
--- NOTE | 2019-01-12 16:09 | NUR ---
DR ACEVEDO CALLED WITH BP 86/50. PATIENT AWAKE AND ALERT, SITTING IN CHAIR TALKING WITH FAMILY. PATIENT ATE ALMOST 100% OF LUNCH. NO NEW ORDERS AT THIS TIME. MONITOR PATIENT.
--- NOTE | 2019-01-12 18:19 | NUR ---
PATIENT REQUESTING MEDICATION FOR ITCHING.NEW ORDER RECIEVED SEE EMAR.
[2019-01-12 20:00] VITALS: BP 115/57
[2019-01-13] VITALS: BP 133/54
--- NOTE | 2019-01-13 00:55 | NUR ---
AFTER SPEAKING WITH DR. FISHMAN, DR. MAHONEY AND DR. KENDALL ABOUT PATIENT BECOMING INCREASINGLY AGITATED AND BEGINNING TO WANDER OUT OF BED AND SETTING HER BED ALARM OFF, IT WAS DECIDED TO GIVE THE PATIENT 25MG OF PO LIQUID BENADRYL AND IF THAT DOESN'T WORK ANOTHER 25MG DOSE COULD BE GIVEN 2 HOURS AFTER THAT.
--- NOTE | 2019-01-13 01:10 | NUR ---
BENEDRYL GIVEN TO TRY TO HELP PATIENT SLEEP D/T RESTLESSNESS AND WANDERING.
--- NOTE | 2019-01-13 01:30 | NUR ---
PATIENT BROUGHT OUT TO THE NURSES STATION AT THIS TIME FOR FREQUENT WANDERING.
--- NOTE | 2019-01-13 01:47 | NUR ---
SPOKE WITH DR. FISHMAN AT THIS TIME. TOLD HIM THAT PATIENT IS BECOMING INCREASINGLY AGITATED AND CANNOT BE REDIRECTED ANYMORE AT THIS POINT. HE STATED THAT HE NEEDED TO LOOK AT SOME THINGS AND WOULD SEE WHAT HE COULD ORDER
--- NOTE | 2019-01-13 02:00 | NUR ---
MEDICATION DOES NOT SEEM EFFECTIVE WITH ITCHING.
--- NOTE | 2019-01-13 02:01 | NUR ---
MULTIPLE ATTTEMPTS MADE TO REORIENTED PATIENT BUT PATIENT ADAMENT THAT SHE IS GOING TO BED UPSTAIRS. PATIENT UNAWARE THAT SHE IS AT THE HOSPITAL. PATIENT REFUSING TO GET INTO BED. PATIENT GATHERING ALL OF HER BELONGINGS AND STATED SHE NEEDS TO GO TO HER BED UPSTAIRS. EXPLAINED TO PATIENT THAT SHE IS IN THE HOSPITAL AND THAT SHE IS ALREADY IN HER ROOM AND HER BED IS HERE WELL.
--- NOTE | 2019-01-13 02:12 | NUR ---
PATIENTS DAUGHTER HERE ATTEMPTING TO COMFORT PATIENT AND REORIENT PATIENT
--- NOTE | 2019-01-13 02:52 | NUR ---
SPOKE WITH DR. FISHMAN AT THIS TIME, PATIENTS DAUGHTER REQUESTING SOMETHING TO HELP HER CALM DOWN SHE IS STILL ATTEMPTING TO GET OUT OF BED AND NOW STATES SHE HAS TO GO TO WORK. ORDER RECIEVED FOR 10MG OF GEODON IM
--- NOTE | 2019-01-13 03:00 | NUR ---
PATIENT STILL DOES NOT APPEAR TO HAVE ANY RELIEF FROM ITCHING. PATIENT CONFUSED AND AGGITATED. WANTS TO GO HOME
--- NOTE | 2019-01-13 03:08 | NUR ---
IM GEODON 10 MG GIVEN D/T PATIENT AGGITATION AND WANDERING.
--- NOTE | 2019-01-13 04:45 | NUR ---
BLOTCHED ON PATIENT APPEAR TO BE PINK AND BLOTCHY. DR. FISHMAN CALLED TO FLOOR TO CHECK PATIENT.
--- NOTE | 2019-01-13 06:00 | NUR ---
VISTARIL GIVEN PER ONE TIME ORDER FOR C/O ITCHING. SEE EMAR. REINFORCED USE OF CALL LIGHT
--- NOTE | 2019-01-13 06:40 | NUR ---
PATIENT RESTIN A LITTLE BETTER.
[2019-01-13 07:11] LABS: CHLORIDE 103 mmol/L (98-107); CREATININE 0.83 mg/dL (0.55-1.02); POTASSIUM 3.6 mmol/L (3.5-5.1); SODIUM 135 mmol/L (136-145)
--- NOTE | 2019-01-13 07:34 | NUR ---
Patient's daughter left message stating they have decided on [facility] in [place]. Contacted facility to check bed availability.
[2019-01-13 08:00] VITALS: BP 132/62
[2019-01-13 08:12] LABS: BUN 20 mg/dl (7-24)
--- NOTE | 2019-01-13 08:16 | NUR ---
Contact for [facility] stating they do not have any available beds today, however there is a pending discharge for Wednesday01/15/19. Referral faxed to [facility] for review for pending placment. Will contact daughters for 2nd choice.
[2019-01-13 08:45] VITALS: BP 132/62
--- NOTE | 2019-01-13 09:02 | NUR ---
Attempted to contact daughter Augusta regarding no beds available at [facility]. Unable to contact, left voicemail stating we need a second choice.
--- NOTE | 2019-01-13 09:48 | NUR ---
[facility] unable to accept this patient since she is an [place] dual product. She has Medicare and [place] medicaid so she needs to stay in [place] for placement. Contacted daughter and explained; she agreed to fax referral to [facility]. Referral faxed, waiting on review.
--- NOTE | 2019-01-13 10:58 | NUR ---
[facility] is requesting nurses notes to review patients behaviors. Patient nurses notes faxed for review.
--- NOTE | 2019-01-13 12:16 | NUR ---
[facility] is unable to accept this patient due to behaviors/wandering. Hospitalists office notified.
[2019-01-13 12:18] VITALS: BP 107/52
[2019-01-13] MEDS ORDERED: ATIVAN0.5 MG PO (12:39)
--- NOTE | 2019-01-13 13:02 | NUR ---
Contacted patients daughter shira, power of assistant county attorney, and explained that [facility] has stated they cannot accept patient due to her behaviors. I gave daughter choices of short term skilled for dementia/behavior locked units. Daughter stated she and her sisters do not want patient in [facility] or any where outside of the local area, they want her to go to our [facility] unit for evaluation by Dr. Sandy. Notified Evelyn ESPOSITO
--- NOTE | 2019-01-13 13:20 | NUR ---
PHYSICAL THERAPY Patient seen this pm 1;1 for therapy visit and was sitting up on EOB with several family members present upon therapist arrival. Patient was identified by wrist band name / secondary to Poor Historian. Patient was very pleasant and needed several v/c's to focus on task in completing all therapy this session. Patient transfers sit to stand MIN A and ambulates REGULATORY COMPLIANCE ENGINEER/MIN, 35'x 1, demonstrating slow, cautious gait pattern. Patient very unsteady during all turns and was a little impulsive upon return to Hannah chair by window. Patient remained in chair with body alarm and Family Supervision. Will continue per POC as tolerated, total treatment time 13 minutes. Ferdinand Barnhart, SHIRT OPERATOR
--- NOTE | 2019-01-13 13:21 | NUR ---
Message left with Marisa, on [facility] regarding consult for Dr. Oneil regarding U consultation.
--- NOTE | 2019-01-13 14:03 | NUR ---
Pt was seen for 30 minutes for OT beginning with sit to stand from recliner with CGA & cue for hand placement. With T[place]TUTULIAK assist, pt performed fxl mobility throughout bedroom, bathroom and hallway. Family reported that patient doesn't use walker as she prefers T[place]K assist for mobility. In bathroom, pt washed face, oral care and grooming with set up & CGA while standing. Fxl transfers to chair required CGA for safety. Call light within reach. Continue with OT POC. Carol BEACH
--- NOTE | 2019-01-13 14:30 | NUR ---
Evelyn Nichols CNP called to follow up on effectiveness of Solu-Medrol dose. Rash is not as red and angry looking. Solu-Medrol effective.
[2019-01-13 16:00] VITALS: BP 128/51
[2019-01-13 20:00] VITALS: BP 97/40
[2019-01-14] VITALS: BP 155/78
--- NOTE | 2019-01-14 01:15 | NUR ---
PATIENT PULLED IV SITE. RESTARTED IN RT AC. PATIENT ANXIOUS WITH TREMORS, ATIVAN PO PROVIDED PER PRN ORDER. WILL MONITOR EFFECTIVENESS.
--- NOTE | 2019-01-14 02:33 | NUR ---
ATIVAN EFFECTIVE. PATIENT RESTING ON LT SIDE, EASY REGULAR RESPIRATIONS, NO S/S DISTRESS. BED IN LOWEST LOCKED POS, CALL LIGTH IN REACH, BED ALARM MAINTAINED.
[2019-01-14 08:00] VITALS: BP 140/80
[2019-01-14 12:00] VITALS: BP 148/84
--- NOTE | 2019-01-14 14:55 | NUR ---
MEDICATED WITH ATIVAN PER ORDER AND REQUEST.
--- NOTE | 2019-01-14 15:30 | NUR ---
ATIVAN HELPED VERY LITTLE.
[2019-01-14 16:00] VITALS: BP 138/86
[2019-01-14 20:00] VITALS: BP 134/75
--- NOTE | 2019-01-14 20:10 | NUR ---
1930 UP IN MEDINA WITH WALKER AND FAMILY. 1944 UP IN RECLINER CHAIR AT BEDSIDE. NO DISTRESS NOTED. HEP LCK INTACT.
--- NOTE | 2019-01-14 22:50 | NUR ---
PATIENT IS SLEEPING WITH EASY AND REGULAR RESPERS ON ROOM AIR. AWAKENS TO BE ALERT AND ORIENTED TO PERSON. ASSESSMENT IS COMPLETE WITH NO C/O OR S/S OF DISTRESS NOTED AT THIS TIME. BED IS LOW, LOCKED, ALARMED, AND CALL LIGHT IS WITHIN REACH. WILL CONTINE TO MONITOR SEE SHIFT ASSESSMENT.
--- NOTE | 2019-01-15 06:34 | NUR ---
24 HOUR CHART CHECK COMPLETE.
[2019-01-15 08:00] VITALS: BP 136/86
[2019-01-15 12:00] VITALS: BP 138/76
[2019-01-15 16:00] VITALS: BP 150/73
--- NOTE | 2019-01-15 19:54 | NUR ---
PATIENT IS RESTING IN BED WITH EASY AND REGULAR RESPERS ON ROOM AIR. ASSESSMENT IS COMPLETE WITH NO C/O OR S/S OF DISTRESS NOTED AT THIS TIME. BED IS LOW, LOCKED, ALARMED, AND CALL LIGHT IS WITHIN REACH. WILL CONTINUE TO MONITOR, SEE SHIFT ASSESSMENT.
[2019-01-15 20:00] VITALS: BP 115/50
[2019-01-16] VITALS: BP 131/50
[2019-01-16 08:00] VITALS: BP 112/46
--- NOTE | 2019-01-16 08:10 | NUR ---
PHYSICAL THERAPY Patient seen this am 1;1 for therapy visit and was supine in bed upon therapist arrival. Patient reports no new c/o's and was very eager to get up out of bed. Patient needed v/c to focus on task to improve safety awareness, transfering supine to sit EOB SBA x 1. Patient performed sit to stand transfer, Min A and ambulated with use of wh walker, CGA for straightline gait and Min A for all turns secondary to cautious gait pattern, 40'x 2. Patient returned to bedside Hannah chair and remained with call light, lap tray and body alarm for safety. Will continue per POC as tolerated, total treatment time 16 minutes. Ferdinand Barnhart, SOFTWARE TEST DEVELOPER
--- NOTE | 2019-01-16 08:15 | NUR ---
PT WAS UP WITH PHYSICAL THERAPY, RESTING IN CHAIR AT THIS TIME. WITH BODY ALARM ON. NO C/O AT THIS TIME. RESP-EASY AND REGULAR. CALL LIGHT IN REACH. SEE SHIFT ASSESSMENT.
--- NOTE | 2019-01-16 08:20 | NUR ---
OT NOTE Pt was seen this A.M. 1:1 for 20 minute OT session. Upon arrival pt was supine in bed. Pt identified by name and and had no complaints at this time. Pt transferred supine to sit EOB with SBA. While sitting EOB pt donned B socks with Juliet due to presenting with F- sitting balance. Sit to stand completed from bed level with Juliet and use of w/w for UE support. Functional mobility then completed into the bathroom with Juliet for walker navigation. Constant verbal prompts provided throughout for slowing down due to being impulsive, pt had poor carry over throughout. Pt transferred on/off standard commode with Juliet due to low surface and poor safety with commode alignment. Clothing management completed with Juliet. Pt then stood sink side while washing her hands with CGA for safety. Functional mobility then completed to the diane chair with CGA and use of w/w. There she was left sitting upright with call light in hand, lap tray in place, and body alarm activated for safety. Continue with rec D/C plan to SNF. LIANNE Saul/Prerna
[2019-01-16 10:00] VITALS: BP 110/48
--- NOTE | 2019-01-16 10:00 | NUR ---
CALLED [facility] TO GET PRE AUTHORAZATION FOR [facility]. PER ANEUDY SHE HAD TO PEND IT TO .
--- NOTE | 2019-01-16 10:10 | NUR ---
TOLERATED ROUTINE MED WITH NO PROBLEM. NO C/O AT THIS TIME. CALL LIGHT IN REACH. BED ALARM ON.
--- NOTE | 2019-01-16 10:38 | NUR ---
CALLED [facility]MEND[facility]. HOLD LISINPRIL FOR NOW. BP 112/48.
--- NOTE | 2019-01-16 11:00 | NUR ---
RECEIVED A CALL BACK FROM ANEUDY FROM [facility], STATES A NEED TO DO A PEER TO PEER. WILL CALL BACK WITH TIME.
[2019-01-16 12:00] VITALS: BP 108/50
--- NOTE | 2019-01-16 13:01 | NUR ---
PER CALL FROM [facility] PEER TO PEER CAN BE DONE ON 01/17 FROM - WITH DR MARTINEZ AT [phone]. FREYA ON [facility] NOTIFIED.
--- NOTE | 2019-01-16 13:57 | NUR ---
SPOKE WITH OSCAR ARIZMENDI AND SHE WILL CALL PEER TO PEER TOMORROW AM TO DR MARTINEZ AT [phone].
--- NOTE | 2019-01-16 14:35 | NUR ---
DR. BAPTISTE IN TO SEE FAMILY AT HER SIDE. EGD/COLO ON WEDNESDAY.
[2019-01-16 16:00] VITALS: BP 142/42
--- NOTE | 2019-01-16 16:00 | NUR ---
RESTING IN BED. RESP-EASY AND REGULAR. NO C/O AT THIS TIME. CALL LIGHT IN REACH. SEE SHIFT ASSESSMENT.
--- NOTE | 2019-01-16 17:30 | NUR ---
TOLERATED ROUTINE IV MEDICATION. NO C/O AT THIS TIME. CALL LIGHT IN REACH. BED ALARM ON.
[2019-01-16 20:00] VITALS: BP 100/46
[2019-01-17] VITALS: BP 141/59
[2019-01-17 07:08] LABS: HEMOGLOBIN 9.3 g/dl (12.0-16.0); MEAN CELL VOLUME 95.4 fl (81.0-99.0); MEAN CORPUSCULAR HGB 32.9 pg (27.0-31.0); MEAN CORPUSCULAR HGB CONC 34.4 g/dl (33.0-37.0); MEAN PLATELET VOLUME 9.3 fl (9.6-12.3); NUCLEATED RED BLOOD CELL 0.3 % (0.0-0.0); PLATELET COUNT AUTOMATED 272 10*3/uL (130-400); RED BLOOD COUNT 2.83 10*6/uL (4.10-5.10); RED CELL DISTRI WIDTH 14.6 % (0-14.5); WHITE BLOOD COUNT 9.2 10*3/uL (4.8-10.8)
[2019-01-17 07:19] LABS: ALBUMIN 2.5 gm/dl (3.1-4.5); BUN 24 mg/dl (7-24); CHLORIDE 107 mmol/L (98-107); CREATININE 0.78 mg/dL (0.55-1.02); POTASSIUM 3.9 mmol/L (3.5-5.1); SGOT/AST 15 IU/L (3-35); SGPT/ALT 25 U/L (12-78); SODIUM 137 mmol/L (136-145); TOTAL PROTEIN 5.3 gm/dL (6.4-8.2)
[2019-01-17 07:20] LABS: ALKALINE PHOSPHATASE 31 U/L (45-117)
[2019-01-17 08:00] VITALS: BP 140/64
[2019-01-17 08:02] LABS: PLATELET SUFFICIENCY NORMAL (NORMAL); POLYCHROMASIA SLIGHT; TOTAL CELLS COUNTED 100 #CELLS
--- NOTE | 2019-01-17 08:10 | NUR ---
PT ASSISTED UP TO BEDSIDE COMMODE AND BACK TO BED. RESP-EASY AND REGULAR. NO C/O AT THIS TIME. CALL LIGHT IN REACH. SEE SHIFT ASSESSMENT.
--- NOTE | 2019-01-17 09:05 | NUR ---
PHYSICAL THERAPY Patient seen this am 1;1 for therapy visit and was supine in bed upon therapist arrival. Patient presented with increased B UE tremors which seemed to greatly impair her ability to feed herself as she was just finishing breakfast. Patient stated she has had the "shakes" for many years now and reports no c/o's pain at this time. Patient transfers supine to sit EOB and sit to stand with MIN A x 1, while ambulating with use of wh walker, MIN A, 45'x 1, demonstrating slow, steady levi. Patient very cautious during all turns and needed v/c to improve safty awareness prior to returning to bedside Hannah chair. Patient remained with call light, lap tray and body alarm. Will continue per POC as tolerated, total treatment time 14 minutes. Ferdinand Barnhart, SPRING COVERER
--- NOTE | 2019-01-17 09:20 | NUR ---
OT NOTE Pt was seen this A.M. 1:1 for 18 minute OT session. Upon arrival pt was supine in bed finishing up her breakfast. Pt identified by name and and had no complaints at this time. Pt transferred supine to sit EOB with SBA. Sit to stand completed from EOB with Juliet and use of w/w for UE support. Functional mobility then completed from the EOB to the diane chair with Juliet and use of w/w. Once in the diane chair pt continued to eat her breakfast. Pt presented with increased difficulty due to B hand tremors. Pt required modA for set up of tray and all drinks were placed into a two handled sippy cup. Attempted several techniques including stabilizing, finger fliks, grasp, and one handed use versus bilateral use and pt continued to present with tremors resulting in personal technique of "drinking" the jello and taking multiple smaller drinks out of the two handeled cup. Pt was left sitting upright in the diane chair with lap tray in place, call light in hand, and body alarm activated for safety. Continue with rec D/C plan to SNF. KEVIN Saul
--- NOTE | 2019-01-17 10:00 | NUR ---
SITTING UP IN RECLINER CHAIR. TOLERATED ROUTINE MED WITH NO PROBLEM. NO C/O AT THIS TIME. BODY ALARM ON. CALL LIGHT IN REACH.
--- NOTE | 2019-01-17 10:02 | NUR ---
DAUGHTER KYLE CALLED AND REFUSES FOR HER MOM DIANE HAVE EGD, [facility] TOMORROW. CALLED [facility] ARIZMENDI AND DR. BAPTISTE THEY ARE AWARE.
--- NOTE | 2019-01-17 10:33 | NUR ---
Contacted Celi at [facility] and asked if they would reconsider patient referral since her behaviors have calmed down. She stated they would reconsider so referral was faxed. Waiting on review/acceptance. Will require precert.
[2019-01-17 12:00] VITALS: BP 138/56
--- NOTE | 2019-01-17 12:26 | NUR ---
[facility] COMPLETED PEER TO PEER WITH INSURANCE. [facility] DENIED. PERRY ANDERSON IS LOOKING AT PATIENT AGAIN TO RECONSIDER. WILL CONTINUE TO FOLLOW.
--- NOTE | 2019-01-17 12:42 | NUR ---
Spoke with patients daughter Enid. Explained patient is unable to go to U as her insurance denied a U stay. Due to patient behaviors calming down, Cholo nieto was faxed the referral again and asked to reconsider. They are reviewing now.
--- NOTE | 2019-01-17 16:00 | NUR ---
PT SITTING UP IN RECLINER CHAIR. RESP-EASY AND REGULAR. BODY ALARM ON. NO C/O AT THIS TIME. CALL LIGHT IN REACH. SEE SHIFT ASSESSMENT.
[2019-01-17 16:03] VITALS: BP 152/61
--- NOTE | 2019-01-17 18:00 | NUR ---
SITTING UP IN RECLINER CHAIR EATING DINNER WITH FAMILY AT HER SIDE. TOLERATING IV ANTIBIOTICS WITH NO PROBLEM. CALL LIGHT IN REACH. BODY ALARM ON.
--- NOTE | 2019-01-17 19:55 | NUR ---
PATIENT VERY ANXIOUS AND TRYING TO GET OUT OF BED TO GO HOME, TREMORS ARE WORSE THAN THEY NORMALLY ARE AT THIS TIME. FAMILY AT BEDSIDE. DR FISHMAN CALLED. NEW ORDER RECEIVED.
[2019-01-17 20:00] VITALS: BP 138/55
--- NOTE | 2019-01-17 20:15 | NUR ---
1 MG ATIVAN ADMINISTERED PRESCRIBED FOR ANXIETY. WILL MONITOR FOR EFFECTIVENESS. BED ALARM ON, CALL LIGHT WITHIN REACH.
--- NOTE | 2019-01-17 21:05 | NUR ---
PATIENT RESTING WITH EYES CLOSED AT THIS TIME. ATIVAN EFFECTIVE FOR ANXIETY AND AGITATION. FOUR BED RAILS IN PLACE PER FAMILY REQUEST. BED ALARM ON AND CALL LIGHT WITHIN REACH. WILL MONITOR.
--- NOTE | 2019-01-17 22:42 | NUR ---
24 HR chart check completed.
--- NOTE | 2019-01-17 23:56 | NUR ---
PATIENT RESTING WITH EYES CLOSED AT THIS TIME. RESPIRATIONS EASY AND UNLABORED. 4 BED RAILS UP PER REQUEST FROM FAMILY. BED ALARM ON AND CALL LIGHT WITHIN REACH.
[2019-01-18] VITALS: BP 137/69
[2019-01-18 08:00] VITALS: BP 110/58
--- NOTE | 2019-01-18 08:12 | NUR ---
OT NOTE Pt was seen this A.M. 1:1 for 25 minute OT session. Upon arrival pt was sitting upright in the diane chair. Pt identified by name and and had no complaints at this time. Pt presented to therapy with resting B hand tremors. While sitting pt doffed and donned B socks with SBA and two verbal prompts for proper sequencing. Pt then donned gown while standing with modA due to being unsteady when standing without UE support. Sit to stand completed from chair level with CGA and verbal prompts for proper hand placement for increased I and improved technique. Functional mobility then completed into the bathroom with Juliet and use of w/w with assist required for walker safety and navigation. Pt transferred on/off standard commode with Juliet due to low surface. Clothing management completed with modA and toilet hygiene completed with SBA while seated. Pt then stood sink side while washing her hands, face, and hair care with CGA. Pt had one LOB while crossing midline that required Juliet to correct and one LOB during a tight turn that required Juliet to correct. Educated pt on walker safety with tight turns for enhanced safety and pt had poor carry over throughout. Pt then sat EOB where her dynamic sitting balance was challenged. While crossing midline, weight shifting, and crossing midline pt was able to maintain F+ sitting balance throughout. Pt was left sitting upright in the diane chair with lap tray in place, body alarm activated for safety, and call light in hand. Continue with rec D/C plan to SNF. KEVIN Saul
--- NOTE | 2019-01-18 09:05 | NUR ---
PHYSICAL THERAPY Patient seen this am 1;1 for therapy visit and was sitting up in Hannah chair upon therapist arrival. Patient was pleasant, however demonstrated bouts of confusion and needed several v/c's to complete all therapy task this session. Patient identified by name / and transfers sit to stand MIN A and ambulates with use of wh walker, CGA, 25'x 2 to bathroom, demonstrating bouts of impulsive behaviour. including increased gait speed. Patient also received v/c for improved wh walker safety / navigation especially in tight bathroom spaces. Patient returned to Hannah chair in room near window with mild fatigue and remained with lap tray, call light and body alarm. Will continue per POC as tolerated, total treatment time 16 minutes. Ferdinand Barnhart, CHEMICAL DETECTION EXPERT
[2019-01-18 12:00] VITALS: BP 124/50
--- NOTE | 2019-01-18 12:00 | NUR ---
DOUG CASTELLON FROM [facility] PT HAS RECEIVED AUTH FOR [employer]. SCRAPER TENDER INFORMED.
--- NOTE | 2019-01-18 13:23 | NUR ---
patient has received auth for [employer]. Daughter uAgusta ([facility]) stating she will come and transport her at 2:30 PM. inventory clerk, nursing and NH notified.
[2019-01-18] MEDS ORDERED: RIVASTIGMINE1 EACH T (13:44)
[2019-01-18] MEDS ORDERED: IMDUR SA30 MG PO (13:44)
[2019-01-18] MEDS ORDERED: ATIVAN0.5 MG PO (13:47)
--- NOTE | 2019-01-18 14:02 | NUR ---
PATIENT TO GO TO [facility].
--- NOTE | 2019-01-18 14:48 | NUR ---
NURSE TO NURSE REPORT GIVEN TO MARIA FERNANDA. DAUGHTER TRANSPORTED PATIENT.
--- NOTE | 2019-01-19 16:57 | NUR ---
OCCUPATIONAL THERAPY CO-SIGN I approve of the Occupational Therapy notes written above. CAESAR [place] OTR/Prerna
== END 2019-01-18 14:48 | disposition other institution (70) | DRG 177 ==
LOC: ED 17:37 → 4E 19:04 → EDHOLD 19:04 → 4E 19:58
PROVIDERS: Emergency Medicine; Internal Medicine; Internal Medicine Gastroenterology; Registered Nurse; ADMIT Family Medicine
DX: J15.6 Pneumonia due to other Gram-negative bacteria (principal); N17.0 Acute kidney failure with tubular necrosis; K92.2 Gastrointestinal hemorrhage, unspecified; E44.0 Moderate protein-calorie malnutrition; E87.1 Hypo-osmolality and hyponatremia; D50.0 Iron deficiency anemia secondary to blood loss (chronic); I10 Essential (primary) hypertension; M81.0 Age-related osteoporosis without current pathological fracture; F03.90 Unspecified dementia, unspecified severity, without behavioral disturbance, psychotic disturbance, mood disturbance, and anxiety; E78.5 Hyperlipidemia, unspecified; R29.6 Repeated falls; W18.30XA Fall on same level, unspecified, initial encounter; L27.1 Localized skin eruption due to drugs and medicaments taken internally; T37.8X5A Adverse effect of other specified systemic anti-infectives and antiparasitics, initial encounter; D72.810 Lymphocytopenia; E87.6 Hypokalemia; I73.00 Raynaud's syndrome without gangrene; R91.1 Solitary pulmonary nodule; D63.8 Anemia in other chronic diseases classified elsewhere; R26.81 Unsteadiness on feet; S00.01XA Abrasion of scalp, initial encounter; Y93.89 Activity, other specified; Y92.89 Other specified places as the place of occurrence of the external cause; Y99.8 Other external cause status; Z88.1 Allergy status to other antibiotic agents; I25.2 Old myocardial infarction; Z85.3 Personal history of malignant neoplasm of breast; Z87.440 Personal history of urinary (tract) infections; Z90.710 Acquired absence of both cervix and uterus; Z87.891 Personal history of nicotine dependence; Z82.3 Family history of stroke; Z79.899 Other long term (current) drug therapy; Z79.82 Long term (current) use of aspirin

== ENCOUNTER → 2019-01-26 | Outpatient (CLI) | payer MEDICARE ==
[~2019-01-26] MED LIST changes: +ASPIRIN ADULT L81 M1 PO; +ATIVAN0.5 MG PO; +HYDROCHLOROTH12.5 M2 PO; +IMDUR SA30 MG PO; +LISINOPRIL10 M1 PO; +OCUVITE ADULT1 EAC1 PO; +RIVASTIGMINE1 EACH T; +VITAMIN D22000 UNIT PO
== END | disposition home or self-care (01) ==
LOC: US 14:42
DX: E04.2 Nontoxic multinodular goiter (principal)

== ENCOUNTER → 2020-05-21 | Outpatient (CLI) | payer MEDICARE, OTHER ==
[~2020-05-21] MED LIST changes: +SYNTHROID25 MCG PO; +TYLENOL325 M3 PO; +VITAMIN C500 M6 PO; +ZINC-220220 MG PO
== END | disposition home or self-care (01) ==
LOC: RAD/SH 09:29
PROVIDERS: ATTEND Family Medicine
DX: R13.12 Dysphagia, oropharyngeal phase (principal); K22.4 Dyskinesia of esophagus

== ENCOUNTER 2021-07-19 19:49 | Emergency (ER) | payer MEDICARE, OTHER | END 2021-07-19 22:35 | LOC: ED 19:49 | DX: S09.90XA Unspecified injury of head, initial encounter (principal); E78.5 Hyperlipidemia, unspecified; I10 Essential (primary) hypertension; M81.0 Age-related osteoporosis without current pathological fracture; E03.9 Hypothyroidism, unspecified; Z79.899 Other long term (current) drug therapy; Z79.82 Long term (current) use of aspirin; Z87.891 Personal history of nicotine dependence; Z90.710 Acquired absence of both cervix and uterus; Z98.890 Other specified postprocedural states; W18.39XA Other fall on same level, initial encounter; Y93.89 Activity, other specified; Y92.89 Other specified places as the place of occurrence of the external cause; Y99.8 Other external cause status ==

== ENCOUNTER 2021-07-21 15:23 | Emergency (ER) | payer MEDICARE, OTHER ==
[~2021-07-21] VITALS: Wt 68.5 kg
[2021-07-21 17:05] LABS: BASO # 0.1 10*3/uL (0.0-0.1); BASO % 0.5 % (0.0-1.0); EOS # 0.2 10*3/uL (0.0-0.4); EOS % 1.8 % (1.0-4.0); HEMATOCRIT 39.6 % (37.0-47.0); LYMPH # 1.3 10*3/uL (1.3-4.4); LYMPH % 11.8 % (27.0-41.0); MEAN CELL VOLUME 84.6 fl (81.0-99.0); MEAN CORPUSCULAR HGB 27.6 pg (27.0-31.0); MEAN CORPUSCULAR HGB CONC 32.6 g/dl (33.0-37.0); MEAN PLATELET VOLUME 9.2 fl (9.6-12.3); MONO # 0.6 10*3/uL (0.1-1.0); MONO % 6.1 % (3.0-9.0); NEUT # 8.4 10*3/uL (2.3-7.9); NEUT % 79.2 % (47.0-73.0); PLATELET COUNT AUTOMATED 198 10*3/uL (130-400); RED BLOOD COUNT 4.68 10*6/uL (4.10-5.10); WHITE BLOOD COUNT 10.6 10*3/uL (4.8-10.8)
[2021-07-21 17:23] LABS: CREATININE 1.1 mg/dL (0.55-1.02); POTASSIUM 3.9 mmol/L (3.5-5.1); TOTAL PROTEIN 7.4 gm/dL (6.4-8.2)
[2021-07-21 17:26] LABS: ACT PARTIAL THROMBO TIME 27.9 SECONDS (20.0-32.1)
[2021-07-21 17:32] LABS: BILIRUBIN Negative (Negative); BLOOD Negative (Negative); CLARITY Clear (Clear); COLOR Yellow (Yellow); GLUCOSE Negative (Negative); KETONE Negative (Negative); LEUKO ESTERASE Negative (Negative); NITRITE Negative (Negative); PH 6.5 (4.5-8.0); UROBILINOGEN 0.2 E.U./dl (0.0-1.0)
[2021-07-21 17:42] LABS: BACTERIA TRACE; EPITHELIAL CELLS 0-2; WBC 0-2 wbc/hpf (0-5)
== END 2021-07-21 22:38 ==
LOC: ED 15:23
PROVIDERS: Emergency Medicine
DX: N17.9 Acute kidney failure, unspecified (principal); F03.90 Unspecified dementia, unspecified severity, without behavioral disturbance, psychotic disturbance, mood disturbance, and anxiety; M25.532 Pain in left wrist; R22.0 Localized swelling, mass and lump, head; M25.551 Pain in right hip; Z88.8 Allergy status to other drugs, medicaments and biological substances; Z79.899 Other long term (current) drug therapy; Z79.82 Long term (current) use of aspirin; Z90.710 Acquired absence of both cervix and uterus; Z98.890 Other specified postprocedural states; Z87.891 Personal history of nicotine dependence; W18.39XA Other fall on same level, initial encounter; Y93.89 Activity, other specified; Y92.89 Other specified places as the place of occurrence of the external cause; Y99.8 Other external cause status